=== PATIENT | female | born 1980 | race Caucasian/White ===

== ENCOUNTER 2018-05-29 09:10 | Emergency (ER) | payer SELFPAY ==
[~2018-05-29] VITALS: Ht 160 cm; Wt 84.4 kg
[2018-05-29 09:15] VITALS: BP 199/102; Ht 160 cm; Wt 84.4 kg
== END 2018-05-29 10:20 | disposition home or self-care (01) ==
LOC: ED 09:10
DX: N93.8 Other specified abnormal uterine and vaginal bleeding (principal); N39.0 Urinary tract infection, site not specified; Z88.8 Allergy status to other drugs, medicaments and biological substances